=== PATIENT | male | born 1960 | race Caucasian/White ===

== ENCOUNTER 2017-11-21 15:54 | Emergency (ER) | payer SELFPAY ==
[2017-11-21] VITALS (16 sets, daily range): BP systolic 147–191; BP diastolic 89–108; PULSE 43–73; RESP 10–18; TEMP 36.5; O2SAT 94–97
[2017-11-21] MEDS: Ondansetron 4 MG/2 ML VIAL IVP (16:15)
[2017-11-21] MEDS: Meclizine 25 MG TAB PO (16:37)
[2017-11-21 16:40] LABS: Abs Immature Grans 0.02 k/cumm (0.0-0.09); Absolute Basophil Count 0.01 k/cumm (0.0-0.2); Absolute Eosinophil Count 0.01 k/cumm (0.0-0.7); Absolute Lymphocyte Count 0.94 k/cumm (1.2-3.4); Absolute Monocyte Count 0.18 k/cumm (0.11-0.7); Basophils % 0.2; Eosinophils % 0.2; HCT 48.3 % (40.0-50.0); HGB 16.8 g/dL (13.5-17.5); Immature Grans % 0.3; Lymphocytes % 14.1; Mean Corp. HGB Concentration 34.8 g/dL (32.0-36.0); Mean Corpuscular Hemoglobin 31.7 pg (27.0-33.0); Mean Corpuscular Volume 91.1 fL (80-95); Mean Platelet Volume 10.5 fL (8.0-11.0); Monocytes % 2.7; Neutrophils % 82.5; Platelet Count 183 x1000/uL (130-400); RBC Distribution Width 12.4 % (11.8-14.1); White Blood Cell Count 6.66 k/cumm (4.4-10.8)
[2017-11-21 17:03] LABS: ALT 79 U/L (12-78); AST 43 U/L (15-37); Albumin 4.3 g/dL (3.4-5.0); Alkaline Phosphatase 92 U/L (46-116); Anion Gap 9.7 mmol/L (3-11); BUN 16 mg/dL (7-18); Bilirubin, Total 0.6 mg/dL (0.2-1.0); CO2 24.3 mmol/L (21.0-32.0); CREATININE 0.87 mg/dL (0.70-1.30); Calcium 8.4 mg/dL (8.5-10.1); Chloride 105 mmol/L (98-107); Glucose 128 mg/dL (70-100); Potassium 3.5 mmol/L (3.5-5.1); Sodium 139 mmol/L (136-145); Total Protein 8.2 g/dL (6.4-8.2)
[2017-11-21 17:05] LABS: Troponin I < 0.02 ng/mL (0.00-0.06)
--- NOTE | 2017-11-21 17:50 | ED.GENADUL ---
Disposition Clinical Impression: Peripheral vertigo Disposition: HOME Condition: Good Instructions: Vertigo (ED), Benign Paroxysmal Positional Vertigo (ED) Additional Instructions: Please take medications as directed. Please drink 8-10 cups of water per day. Please follow-up with your family doctor soon as possible for reevaluation. If you notice any worsening of your symptoms, or any new symptoms such as vomiting, diarrhea, fever, chills, shortness of breath, chest pain, numbness, weakness, or fainting , please return immediately to the emergency department for reevaluation. Please follow up with your primary care provider as soon as possible for reassessment and reevaluation. As always, it was a pleasure participating in your medical care today. Prescriptions: Diazepam [Valium] 10 mg PO BID #10 tab Meclizine [Antivert] 25 mg PO Q6H #20 tab Ondansetron [Zofran] 4 mg PO Q8H #20 tab Referrals: Beverly Freed MD [Primary Care Provider] - Medical Decision Making - Lab Data Laboratory Tests 11/21/17 11/21/17 16:20 16:20 WBC 6.66 RBC 5.30 Hgb 16.8 Hct 48.3 MCV 91.1 MCH 31.7 MCHC 34.8 RDW 12.4 Plt Count 183 MPV 10.5 Immature Gran % 0.3 Neutrophils % 82.5 Lymphocytes % 14.1 Monocytes % 2.7 Eosinophils % 0.2 Basophils % 0.2 Absolute Neutrophils 5.50 Absolute Lymphocytes 0.94 L Absolute Monocytes 0.18 Absolute Eosinophils 0.01 Absolute Basophils 0.01 Sodium 139 Potassium 3.5 Chloride 105 Carbon Dioxide 24.3 Anion Gap 9.7 BUN 16 Creatinine 0.87 Estimated GFR/1.73 m2 >= 60.00 Glucose 128 H Calcium 8.4 L Total Bilirubin 0.6 AST 43 H ALT 79 H Alkaline Phosphatase 92 Troponin I < 0.02 Total Protein 8.2 Albumin 4.3 - Medical Decision Making This is a pleasant 57-year-old male who presents with sudden onset severe and profound dizziness after turning his head quickly in the morning when trying to get out of bed. He had no neck pain, no headache. He did have associated tinnitus. His dizziness is described as room spinning, is worsened with movement. Physical exam demonstrates horizontal nystagmus, and hence exam demonstrates symptoms concerning for peripheral vertigo, with no signs or symptoms concerning for central vertigo. Initially upon presentation and identification of his symptoms the Lori maneuver was performed for both sides. The patient did have some improvement of his symptoms but not resolution. After this the patient was given meclizine, Valium. He was reassessed in his horizontal nystagmus notably improved. He was able to get up and ambulate with me at this time, and demonstrated no evidence of a wide-based gait or ataxia. He was slightly cautious secondary to his dizziness but was able to ambulate well. Patient's laboratory workup returned benign. EKG is normal. With his signs and symptoms being clinically significant for a peripheral vertigo etiology, with no signs or symptoms evident of a central event, I do feel that he is safe for potential discharge. I discussed with the patient the potential for discharge versus observation overnight for continued Valium for his symptoms and the patient has requested to go home. With a benign neurologic exam I feel that this is reasonable. Patient will be started on meclizine, Zofran, and Valium for his dizziness at home. If he does not have improvement of his symptoms he has been instructed to return for potential steroids and ENT follow-up. We discussed red flags which returned the patient understands. I have extensively reviewed the treatment plan and discharge instructions with the patient and their family. I have addressed all patient concerns at this time. The patient and family was made aware of what symptoms to monitor for that would warrant a return to the emergency department. Discussed the plan with the patient and family, they demonstrate verbal understanding and agreement with our assessment and plan at this time. EKG 16: 00 Rate 62, sinus rhythm, intervals normal, no ST elevations or depressions. There is her prime in V1. Questionable Q-wave in lead III and aVF. No other abnormalities on EKG. History of Present Illness - General Chief complaint: GenMedical Stated complaint: VERTIGO, VOMITING Time Seen by Provider: 11/21/17 15:56 - History of Present Illness Initial comments: This is a 57-year-old male with no significant past medical history who presents for evaluation of dizziness. Patient states he woke up this morning asymptomatic however when he turned his head suddenly to get out of bed he became profoundly dizzy. The symptoms have continued throughout the day with no improvement. They are worsened with movement. He has noted an associated ringing in his ears. He denies any visual changes. He states that his symptoms are better when he is lying still, and has his eyes closed. He describes his dizziness as a world spinning sensation. He denies any numbness tingling weakness chest pain headache. He denies any recent surgeries, pertinent family history or other complaints at this time. He has had occasional episodes of vomiting secondary to his symptoms. He denies any diarrhea or abdominal pain. - Related Data Diazepam [Valium] 10 mg PO BID #10 tab 11/21/17 Meclizine [Antivert] 25 mg PO Q6H #20 tab 11/21/17 Ondansetron [Zofran] 4 mg PO Q8H #20 tab 11/21/17 Allergies Allergy/AdvReac Type Severity Reaction Status Date / Time No Known Allergies Allergy Unverified 11/21/17 16:03 Review of Systems Other: 10 point review of systems was performed, pertinent positives and negatives are noted in the history of present illness. General Exam - Other Other exam information: 1.Const: Well-nourished, Well-developed, appearing stated age 2.Eyes: PERRL, no conjunctival injection, and symmetrical lids. Notable horizontal nystagmus. 3.ENT: Atraumatic external nose and ears. Moist MM. Neck: Symmetric, trachea midline, No thyromegaly. 4.CVS: +S1/S2, No murmurs or gallops. Peripheral pulses 2+ and equal in all extremities. Brisk capillary refill in all extremities. 5.RESP: Unlabored respiratory effort. Clear to auscultation bilaterally. No wheezes rales or rhonchi 6.GI: Soft, Nontender/Nondistended, No hepatosplenomegaly. No guarding or rebound. 7.MSK: Normocephalic/Atraumatic, Extremities w/o deformity or ttp No cyanosis or clubbing, Normal movement of all extremities 8.Skin: Warm, Dry. No rashes or lesions. 9.Neuro: [facility] II-XII grossly intact. Sensation grossly intact, no focal neurologic deficits. All 6 cardinal planes of vision or fully intact. The patient demonstrated a normal [id number], good dexterity. There was no evidence of dysdiadochokinesia. Patient was initially unable to ambulate secondary to profound dizziness. [id number] testing was normal. Sensation was intact bilaterally as well as muscle strength bilaterally for all extremities. Patient was able to verbalize butter cup with no slurring, or miss pronunciation. Cerebellar function testing is normal. The patient demonstrates a normal hints exam with no findings concerning for a central event. No vertical nystagmus. There is notable rightward beating horizontal nystagmus though. No rotatory nystagmus. Head impulse test demonstrates notable worsening of symptoms, and positivity suggestive of a peripheral event.. Normal test of skew. No suggestion of a central cerebellar event. 10.Psych: (AAO) x3. Appropriate mood and affect Course Vital Signs - 24 hr 11/21/17 11/21/17 11/21/17 16:00 16:01 16:04 Temperature 36.5 C Pulse 64 56 L Respiratory 10 L 15 18 Rate Blood Pressure 186/104 181/108 Pulse Oximetry 97 96 11/21/17 11/21/17 11/21/17 16:23 16:43 16:44 Temperature Pulse 43 L 62 Respiratory 14 16 Rate Blood Pressure 191/104 156/96 Pulse Oximetry 97 11/21/17 11/21/17 11/21/17 16:46 16:50 17:00 Temperature Pulse 58 L 63 Respiratory 16 18 15 Rate Blood Pressure 147/96 149/101 Pulse Oximetry 94 L 94 L 96 11/21/17 11/21/17 11/21/17 17:01 17:10 17:15 Temperature Pulse 62 Respiratory 16 17 16 Rate Blood Pressure 151/89 Pulse Oximetry 96 95 97 11/21/17 11/21/17 11/21/17 17:20 17:30 17:31 Temperature Pulse 58 L Respiratory 16 15 17 Rate Blood Pressure 148/92 Pulse Oximetry 95 95 95
== END 2017-11-21 18:03 | disposition home or self-care (01) ==
PROVIDERS: Emergency Provider Student in an Organized Health Care Education/Training Program; PCP Nurse Practitioner Family
DX: H81.399 Other peripheral vertigo, unspecified ear (principal); H93.13 Tinnitus, bilateral
CPT/HCPCS: 36415; 80053; 93005; 96374; 99284; 84484; 85025; 93010

== ENCOUNTER 2017-12-18 19:04 | Outpatient (REF) | payer SELFPAY ==
[2017-12-18 19:43] LABS: HCT 45.9 % (40.0-50.0); HGB 15.8 g/dL (13.5-17.5); Mean Corp. HGB Concentration 34.4 g/dL (32.0-36.0); Mean Corpuscular Hemoglobin 31.3 pg (27.0-33.0); Mean Corpuscular Volume 91.1 fL (80-95); Mean Platelet Volume 10.6 fL (8.0-11.0); Platelet Count 219 x1000/uL (130-400); RBC 5.04 m/cumm (4.50-6.00); RBC Distribution Width 12.3 % (11.8-14.1); White Blood Cell Count 4.53 k/cumm (4.4-10.8)
[2017-12-18 19:45] LABS: Bilirubin Negative (Negative); Blood Negative (Negative); Clarity Clear; Glucose Negative (Negative); Ketones Negative (Negative); Leukocyte Esterase Negative (Negative); Nitrite Negative (Negative); Specific Gravity 1.015 (1.005-1.025); Urobilinogen 0.2 EU/dL (Up TO 0.2); pH 6.5 (5-8)
[2017-12-18 19:49] LABS: Anion Gap 8.7 mmol/L (3-11); BUN 18 mg/dL (7-18); CO2 28.3 mmol/L (21.0-32.0); CREATININE 0.92 mg/dL (0.70-1.30); Calcium 8.8 mg/dL (8.5-10.1); Chloride 104 mmol/L (98-107); Glucose 90 mg/dL (70-100); Potassium 4.1 mmol/L (3.5-5.1); Sodium 141 mmol/L (136-145)
== END 2017-12-18 19:24 ==
LOC: NCHCN 19:04
PROVIDERS: PCP Nurse Practitioner Family; Visit Provider Nurse Practitioner Family
DX: R30.0 Dysuria (principal)
CPT/HCPCS: 80048; 85027; 81003; 81015

== ENCOUNTER 2019-01-18 07:06 | Emergency (ER) | payer SELFPAY ==
[2019-01-18 07:11] VITALS: BP 199/108; PULSE 72; RESP 18; TEMP 36.6; O2SAT 97
--- NOTE | 2019-01-18 07:25 | W.ED.GENAD ---
Discharge Plan Disposition Patient Disposition: HOME Condition: Good Discharge Details Chief Complaint: GenMedical Clinical Impression: Penile cellulitis, Phimosis, Blood pressure elevated without history of HTN Primary Care Provider: Darlene Lauren ED Provider: Tejas Ruelas [place] Meds and New Rx's Prescriptions: New cephalexin [Keflex] 500 mg capsule 500 mg PO TID Qty: 20 RF: 0 Discharge Instructions Additional Instructions: Please clean the wound/area with half peroxide/half water or soap and water 2-3 times a day. Apply bacitracin to the area. Antibiotic as directed. Ibuprofen for pain and swelling. Follow-up with Dr. Meza next week for recheck. We will also need follow-up with primary care for recheck of blood pressure. Return to ED for inability to urinate, increasing pain or swelling, discharge, high fevers. Also return if you develop severe headache, neurologic changes, chest pain, shortness of breath. Referrals: Errol Meza MD [ [facility] STAFF PHYSICIAN] - Darlene Lauren [Primary Care Provider] - Medical Decision Making Patient has previous phimosis and is never been able to retract the foreskin. Subsequently, had injury to the foreskin with skin tear and now probable infection with swelling and erythema. We will start him on antibiotic. We will have him gently clean the area 2-3 times a day and apply bacitracin. Will refer to urology, Dr. Meza, next week for recheck. Return to ED if inability to urinate, increasing pain or swelling, fever, other concerns or problems. Will refer to primary care for recheck of blood pressure. Suspect most of this is anxiety driven as he is quite anxious and upset about what is going on. But it also sounds like he does not necessarily see primary care on a fairly regular basis. He denies past medical history but follow-up for blood pressure recheck. HPI General Mode of arrival: ambulatory. Date/Time Provider Initiated Documentation: 01/18/19 07:24. Limitations to Documentation: no limitations. Information obtained by: patient and RN notes reviewed. HPI Narrative: Patient presents to ED for evaluation of penile injury. Patient zipped his foreskin up in his pants last week. He had a significant tear. He used [place] it. He has since developed increased discomfort, swelling, redness. There is no drainage. He has had no fevers or chills. He is able to still urinate. He presents for evaluation. Related Data Home Medications Medication Instructions Recorded Confirmed cephalexin [Keflex] 500 mg PO TID #20 cap 01/18/19 Previous Rx's Medication Instructions Recorded cephalexin [Keflex] 500 mg PO TID #20 cap 01/18/19 Allergies Allergy/AdvReac Type Severity Reaction Status Date / Time No Known Allergies Allergy Unverified 01/18/19 07:16 General Stated Complaint: GenMedical ZHENG: 4 Review of Systems Constitutional Constitutional: Denies fever(s) Genitourinary Genitourinary: Denies dysuria, Denies penile discharge and Denies scrotal swelling [facility] Social History Smoking/Tobacco Use Status: Former Tobacco Use Substance use type: does not use Exam Narrative Exam Narrative: Vitals: Afebrile. Hypertensive but very anxious. Const: WDWN male in NAD. HEENT: NC/AT. Normal facial exam. Eyes: Normal conjunctiva and sclera. Neck: Supple. Trachea midline. Lungs: Normal respiratory effort. : Patient has phimosis. Foreskin is discolored from previous [place] application. Significant erythema and swelling. Skin tear on ventral aspect. Neuro: A+O x 3. CN grossly in tact. Good strength and no focal deficit. Course Vital Signs Vital signs: Vital Signs Temperature 97.9 F 01/18/19 07:11 Pulse 72 01/18/19 07:11 Respiratory Rate 18 01/18/19 07:11 Blood Pressure 199/108 H 01/18/19 07:11 Pulse Oximetry 97 01/18/19 07:11 Temperature 97.9 F 01/18/19 07:11 Temperature Source Skin 01/18/19 07:11 Pulse 72 01/18/19 07:11 Respiratory Rate 18 01/18/19 07:11 Respiratory Effort 01/18/19 07:17 Respiratory Depth Normal 01/18/19 07:17 Blood Pressure 199/108 H 01/18/19 07:11 Pulse Oximetry 97 01/18/19 07:11 Oxygen Delivery Method Room Air 01/18/19 07:11 Oxygen Flow Rate 0 01/18/19 07:11
[2019-01-18] MEDS: Cephalexin 500 MG CAP PO (07:45)
[2019-01-18 08:01] VITALS: BP 163/120; PULSE 74; RESP 18; O2SAT 98
--- NOTE | 2019-01-18 16:59 | NUR.NOTE ---
Nursing Note: Referral faxed to Urology, [facility] for follow up. Alissa Shahid.
== END 2019-01-18 07:54 | disposition home or self-care (01) ==
PROVIDERS: Emergency Provider Emergency Medicine; PCP Nurse Practitioner Family
DX: N48.22 Cellulitis of corpus cavernosum and penis (principal); N47.1 Phimosis; R03.0 Elevated blood-pressure reading, without diagnosis of hypertension
CPT/HCPCS: 99283

== ENCOUNTER 2020-07-17 16:13 | Outpatient (REF) | payer SELFPAY ==
[2020-07-17 17:25] LABS: ALT 34 U/L (16-63); AST 15 U/L (15-37); Albumin 4.3 g/dL (3.4-5.0); Alkaline Phosphatase 103 U/L (46-116); Anion Gap 8.4 mmol/L (3-11); BUN 18 mg/dL (7-18); Bilirubin, Total 0.3 mg/dL (0.2-1.0); CO2 28.6 mmol/L (21.0-32.0); Calcium 8.8 mg/dL (8.5-10.1); Chloride 104 mmol/L (98-107); Glucose 170 mg/dL (74-106); Potassium 3.8 mmol/L (3.5-5.1); Sodium 141 mmol/L (136-145); Total Protein 7.9 g/dL (6.4-8.2)
[2020-07-17 17:34] LABS: Abs Immature Grans 0.01 10^3/uL (0.0-0.06); Absolute Basophil Count 0.03 10^3/uL (0.0-0.2); Absolute Eosinophil Count 0.08 10^3/uL (0.0-0.7); Absolute Lymphocyte Count 2.26 10^3/uL (1.2-3.4); Absolute Monocyte Count 0.25 10^3/uL (0.1-0.8); Absolute Neutrophil Count 1.59 10^3/uL (1.2-6.7); Basophils % 0.7; Eosinophils % 1.9; HCT 46.5 % (40.0-50.0); HGB 15.8 g/dL (13.5-17.5); Immature Grans % 0.2; Lymphocytes % 53.6; MCH 30.7 pg (27.0-33.0); MCV 90.3 fL (80-95); MPV 10.2 fL (8.0-11.0); Monocytes % 5.9; Neutrophils % 37.7; Nucleated RBC 0 %; Platelet Count 225 10^3/uL (130-400); RBC 5.15 10^6/uL (4.36-5.78); RDW 11.7 % (11.8-14.1); RDW-SD 38.8 fL; WBC 4.22 10^3/uL (4.4-10.8)
== END 2020-07-17 16:14 | disposition home or self-care (01) ==
LOC: LBN 16:13
PROVIDERS: PCP Nurse Practitioner Family; Visit Provider Urology
DX: C60.9 Malignant neoplasm of penis, unspecified (principal)
CPT/HCPCS: 80053; 85025

== ENCOUNTER 2020-09-28 11:53 | Outpatient (REF) | payer MEDICAID, SELFPAY | END 2020-09-28 11:54 | disposition home or self-care (01) | LOC: LBN 11:53 | PROVIDERS: PCP Nurse Practitioner Family; Referring Provider Nurse Practitioner Family; Visit Provider Urology | DX: C60.9 Malignant neoplasm of penis, unspecified (principal) | CPT/HCPCS: 87086 ==

== ENCOUNTER 2020-10-02 11:03 | Outpatient (REF) | payer MEDICAID, SELFPAY ==
[2020-10-02 14:49] LABS: BUN 17 mg/dL (7-18); CREATININE 0.9 mg/dL (0.70-1.30); Chloride 102 mmol/L (98-107); Glucose 113 mg/dL (74-106); Potassium 4.6 mmol/L (3.5-5.1); Sodium 142 mmol/L (136-145)
== END 2020-10-02 11:04 | disposition home or self-care (01) ==
LOC: NCHCN 11:03
PROVIDERS: PCP Nurse Practitioner Family; Visit Provider Nurse Practitioner Family
DX: C60.9 Malignant neoplasm of penis, unspecified (principal); I10 Essential (primary) hypertension
CPT/HCPCS: 80048

== ENCOUNTER 2020-10-13 08:24 | Emergency (ER) | payer MEDICAID, SELFPAY ==
[2020-10-13] VITALS (53 sets, daily range): BP systolic 132–160; BP diastolic 72–106; PULSE 64–94; RESP 18; TEMP 36.6; O2SAT 94–99
--- NOTE | 2020-10-13 08:31 | ED.GENADUL_ITS ---
Discharge Plan Disposition Patient Disposition: [facility] Condition: Stable Discharge Details Clinical Impression: Cellulitis and abscess of right leg Primary Care Provider: Darlene Lauren ED Provider: Kim Dubon Home Meds and New Rx's Prescriptions: No Action lisinopril 5 mg tablet 7.5 mg PO DAILY RF: 0 Discharge Instructions Instructions: Cellulitis (ED) Discharge Data Discharge Date/Time-TO BE ENTERED AT DEPARTURE: 10/13/20 16:25 Medical Decision Making <Kim Dubon - Last Filed: 10/13/20 16:13> 60-year-old male presents to the ER with chief complaint of Right thigh redness and swelling which he noticed 2 days ago. He denies any fever chills no nausea vomiting abdominal pain or any other associated symptoms. 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 He recently had drains removed on September 25, 2020. He was seen by urology at [facility] on September 30, 2020. At that time the aspirate some fluid from his right groin and sent it for culture. He is not currently taking any antibiotics. At this time cellulitis work-up ordered including CBC, CMP, lactate, blood cultures x2. CT extremity with IV contrast ordered to evaluate cellulitis rule out abscess. Patient has approximately 15 cm x 9 cm area of erythema and induration with a central area of fluctuance noted to the right anterior thigh. Labs are largely unremarkable, no leukocytosis, lactate 1.1, CMP largely within normal limits, blood cultures are pending at this time. 1038: Call made to [facility] transfer center, Images pushed awaiting call back. 1113: Call from radiologist there is 2 abscesses noticed one measuring 10 cm and an adjacent abscess measuring 4 cm 1114: Spoke with Dr. Duggan with urology at [facility], Dr Nogueira to accept patient for transfer. Will arrange for transfer. 1122: Discussed plan of care with Betty who verbalizes understanding. CT Right lower Extremity: FINDINGS: Bones: No fracture. No lytic or sclerotic lesions are identified. Soft Tissues: Circumscribed low-density collections are seen in the anterior right upper subcutaneous fat. The more inferior, larger collection measures roughly 10 x 6 x 4 cm. The smaller collection more superiorly measures 4 x 3 x 1.6 cm. The larger collection causes mass effect upon the adjacent muscle. There is some edema in the subcutaneous fat. No foreign bodies or calcifications are seen. Bilateral hydroceles are noted. IMPRESSION: Two abscess collections are noted in the anterior right upper thigh. The findings were called to Kim Sparks of the emergency department after completion of the exam. Discussed plan of care with patient regarding transfer to [facility] for further evaluation and care he verbalizes understanding and consents to transfer and signed transfer form. At this time we are pending bed placement and transport. Vancomycin and IV fluids are infusing without difficulty. 1529: Awaiting bed placement at [facility], Patient has remained hemodynamically stable, afebrile, IV Cefazolin and Vancomycin done infusing. 1610: Bed assignment received from [facility] patient to go to to see EMS transport is pending at this time. Discussed plan of care and update with who verbalizes understanding. <Ry Pires MD - Last Filed: 10/17/20 03:17> Patient seen, examined, and discussed with MELINA Dubon. I agree with treatment plan as discussed/documented. HPI <Kim Dubon - Last Filed: 10/13/20 16:13> General Mode of arrival: ambulatory . Date/Time Provider Initiated Documentation: 10/13/20 08:25 . Limitations to Documentation: no limitations . Information obtained by: patient and old records reviewed . HPI Narrative: 60-year-old male presents to the ER with chief complaint of Right thigh redness and swelling which he noticed 2 days ago. He denies any fever chills no nausea vomiting abdominal pain or any other associated symptoms. 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 He recently had drains removed on September 25, 2020. He was seen by urology at [facility] on September 30, 2020. At that time the aspirate some fluid from his right groin and sent it for culture. He is not currently taking any antibiotics. Related Data Home Medications Medication Instructions Recorded Confirmed lisinopril 7.5 mg PO DAILY 10/13/20 10/13/20 Allergies Allergy/AdvReac Type Severity Reaction Status Date / Time No Known Allergies Allergy Unverified 10/13/20 08:39 General ZHENG: 4 Review of Systems <Kim Dubon - Last Filed: 10/13/20 16:13> Narrative: Constitutional: Negative for weight loss, alert and oriented, well groomed, normal body habitus, appears comfortable. HEENT: Denies trauma, headaches, blurry vision, nasal discharge, sore throat, trouble swallowing. Chest: Denies chest pain, palpitations, irregular rhythm, hypertension. Respiratory: Denies Shortness of breath, cough, hemoptysis. GI: Denies abdominal pain, nausea, vomiting, diarrhea, constipation. : Status post radical penectomy Musculoskeletal: Right anterior thigh pain, redness, swelling. Neuro: Denies dizziness, blurry vision, weakness, syncope, headache or facial numbness. Hematologic: Denies easy bruising, intolerance to heat or cold, hair loss. PFSH <Kim Duobn - Last Filed: 10/13/20 16:13> Social History Smoking/Tobacco Use Status: Former Tobacco Use Smoking risk assessment performed?: Yes Alcohol Intake: never Drug use: Never Substance use type: does not use Do you feel safe at home: Yes Do you feel safe in your relationship?: Yes Exam <Kim Dubon - Last Filed: 10/13/20 16:13> Narrative Exam Narrative: Constitutional: Alert and oriented x3. Appears stated age. Normal body habitus. Head: Normocephalic, no trauma. Eyes: Pupils PERRLA, Red reflex noted, EOM's intact. Eyelids symmetrical without lesions, discharge, or swelling. Chest: RRR, Normal S1, S2, distal pulses intact. Resp: Lungs clear to auscultation bilaterally, no wheezes, rales, or rhonchi. Abdomen: Soft, nondistended nontender to palpation. Genitourinary: Status post splenectomy, inguinal incisions noted no drainage bilaterally. Musculoskeletal: See below. 5/5 strength to all four extremities. Skin: Capillary refill less than 2 sec. see below Neurologic: Cranial nerves II-XII intact. Alert and oriented x 3. DTR's intact. Hematologic/Lymphatic: No ecchymosis, no lymphadenopathy. Extrem Right lower extremity: hip/thigh Details: tenderness, swelling and warmth; no crepitus
--- NOTE | 2020-10-13 08:45 | DI.CT_ITS ---
Exam(s) CT LOWER EXTREMITY RT W EXAM: CT LOWER EXTREMITY RT W CLINICAL HISTORY: Cellulitis, R/O abscess. TECHNIQUE: Imaging Protocol: Axial computed tomography images with coronal and sagittal reformatted images were created and reviewed. CONTRAST MATERIAL: Intravenous: Omnipaque 350 Contrast volume:100 cc COMPARISON: No exams were available for comparison FINDINGS: Bones: No fracture. No lytic or sclerotic lesions are identified. Soft Tissues: Circumscribed low-density collections are seen in the anterior right upper subcutaneou s fat. The more inferior, larger collection measures roughly 10 x 6 x 4 cm. The smaller collection more superiorly measures 4 x 3 x 1.6 cm. The larger collection causes mass effect upon the adjacent muscle. There is some edema in the subcutaneous fat. No foreign bodies or calcifications are seen. Bilateral hydroceles are noted. IMPRESSION: Two abscess collections are noted in the anterior right upper thigh. The findings were called to Kim Sparks of the emergency department after completion of the exam. RADIATION DOSE DELIVERED: 317.08mGy.cm Total DLP DATA REPOSITORY: All CT scans at this facility are submitted to the National Radiology Data Registry (NRDR) Dose Index Registry (DIR) with the [employer] (A[employer]). RADIATION OPTIMIZATION: All CT scans at this facility use at least one of these dose optimization te chniques: automated exposure control; mA and/or kV adjustment per patient size (includes targeted exa ms where dose is matched to clinical indication); or iterative reconstruction.
[2020-10-13 09:28] LABS: Lactate 1.1 mmol/L (0.6-1.4)
[2020-10-13 09:31] LABS: Abs Immature Grans 0.02 10^3/uL (0.0-0.06); Absolute Basophil Count 0.02 10^3/uL (0.0-0.2); Absolute Eosinophil Count 0.08 10^3/uL (0.0-0.7); Absolute Monocyte Count 0.61 10^3/uL (0.1-0.8); Absolute Neutrophil Count 4.75 10^3/uL (1.2-6.7); Basophils % 0.3; Eosinophils % 1.1; HCT 41.3 % (40.0-50.0); HGB 13.4 g/dL (13.5-17.5); Immature Grans % 0.3; Lymphocytes % 24.7; MCH 29.8 pg (27.0-33.0); MCHC 32.4 % (32.0-36.0); MPV 9.4 fL (8.0-11.0); Monocytes % 8.4; Neutrophils % 65.2; Nucleated RBC 0 %; Platelet Count 236 10^3/uL (130-400); RBC 4.49 10^6/uL (4.36-5.78); RDW-SD 40.7 fL; WBC 7.28 10^3/uL (4.4-10.8)
[2020-10-13 09:44] LABS: ALT 23 U/L (16-63); AST 16 U/L (15-37); Albumin 3.6 g/dL (3.4-5.0); Alkaline Phosphatase 98 U/L (46-116); Anion Gap 7.5 mmol/L (3-11); BUN 15 mg/dL (7-18); Bilirubin, Total 0.7 mg/dL (0.2-1.0); CO2 30.5 mmol/L (21.0-32.0); Chloride 103 mmol/L (98-107); Glucose 97 mg/dL (74-106); Potassium 4.2 mmol/L (3.5-5.1); Sodium 141 mmol/L (136-145)
[2020-10-13] MEDS: ceFAZolin 2 GM/50 ML BAG IVPB (09:44)
[2020-10-13] MEDS: Normal Saline 1,000 ML 125 ML IV (09:44)
[2020-10-13] MEDS: Normal Saline - Diluent 50 ML VIAL IV (10:24)
[2020-10-13] MEDS: Omnipaque 350 MG/ML 100 ML BTL IJ (10:33)
[2020-10-13] MEDS: Normal Saline Flush 10 ML SYR IVP (10:33)
[2020-10-13] MEDS: VANCOMYCIN/WATER (PEG) 1 GM/200 ML BAG IVPB (11:21)
== END 2020-10-13 16:25 | disposition short-term general hospital (02) ==
PROVIDERS: Emergency Provider Registered Nurse Emergency; PCP Nurse Practitioner Family
DX: L03.115 Cellulitis of right lower limb (principal); L02.415 Cutaneous abscess of right lower limb; R23.4 Changes in skin texture; T81.49XA Infection following a procedure, other surgical site, initial encounter; Y83.6 Removal of other organ (partial) (total) as the cause of abnormal reaction of the patient, or of later complication, without mention of misadventure at the time of the procedure
CPT/HCPCS: 36415; 80053; 87040; 96361; 96365; 96366; 96367; 99285; 73701; 83605; 85025; J0690; J3490

== ENCOUNTER 2020-11-27 14:27 | Outpatient (REF) | payer MEDICAID, SELFPAY ==
[2020-11-27 16:48] LABS: Bilirubin Negative (Negative); Blood Negative (Negative); Clarity Clear (Clear); Glucose Negative (Negative); Ketones Negative (Negative); Leukocyte Esterase Negative (Negative); Nitrite Negative (Negative); Specific Gravity 1.025 (1.005-1.025); Urobilinogen 0.2 EU/dL (Up TO 0.2)
== END 2020-11-27 14:28 | disposition home or self-care (01) ==
LOC: NCHCN 14:27
PROVIDERS: PCP Nurse Practitioner Family; Visit Provider Nurse Practitioner Family
DX: C60.9 Malignant neoplasm of penis, unspecified (principal)
CPT/HCPCS: 81003